=== PATIENT | female | born 1965 | race Caucasian/White ===

== ENCOUNTER 2018-11-24 18:50 | Emergency (ER) | payer MEDICAID ==
[~2018-11-24] VITALS: Ht 165.1 cm; Wt 67.1 kg
[2018-11-24 18:58] VITALS: BP_SYST 135
[2018-11-24] MEDS ORDERED: ceFAZolin SODIUM 1 GM in D5W 50 ML IV ONE (19:15)
[2018-11-24] MEDS ORDERED: NACL 0.9% 1,000 ML IV ONE (19:44)
[2018-11-24] MEDS ORDERED: ceFAZolin SODIUM 1 GM VIAL ONE (19:46)
[2018-11-24] MEDS ORDERED: DIPHENHYDRAMINE INJ 50 MG/ML VIAL IVP ONE (20:15)
[2018-11-24] MEDS ORDERED: MORPHINE 4 MG/ML INJ. SYRINGE IVP ONE ×2 (20:15→21:00)
[2018-11-24] MEDS ORDERED: MORPHINE 4 MG/ML INJ. SYRINGE ONE (20:17)
[2018-11-24] MEDS ORDERED: DIPH-TET-PERTUS Vaccine 0.5 ML VIAL (ADACEL) IM ONE (20:30)
[2018-11-24 20:41] LABS: BASOPHILS % (AUTO) 0.7 % (0.0-2.0); EOSINOPHILS # (AUTO) 0.1 K/uL (0.0-0.4); EOSINOPHILS % (AUTO) 1.3 % (0.0-4.0); HEMATOCRIT 37.2 % (36-48); HEMOGLOBIN 12.4 g/dL (12.0-16.0); LYMPHOCYTES # (AUTO) 0.9 K/uL (1.0-5.5); MEAN CORPUSCULAR HEMOGLOBIN 33 pg (27-31); MEAN CORPUSCULAR HGB CONC 33 % (32-36); MEAN CORPUSCULAR VOLUME 100 fL (79.0-98.0); MONOCYTES # (AUTO) 0.4 K/uL (0.0-1.0); MONOCYTES % (AUTO) 7.2 % (1.7-9.3); NEUTROPHILS # (AUTO) 4.4 K/uL (1.8-7.7); NEUTROPHILS % (AUTO) 75.8 % (40.0-70.0); PLATELET COUNT (AUTO) 304 K/uL (130-430); RED BLOOD CELL COUNT(AUTO) 3.74 MIL/uL (4.2-6.2); RED CELL DISTRIBUTION WIDTH 15.6 % (9.0-15.0); WHITE BLOOD COUNT (AUTO) 5.8 K/uL (4.8-10.8)
[2018-11-24 20:53] LABS: CALCIUM 8.2 mg/dL (8.4-11.0); CREATININE 0.81 mg/dL (0.55-1.30); POTASSIUM 3.4 mmol/L (3.5-5.1)
[2018-11-24 21:00] LABS: ALBUMIN 3.1 g/dL (3.4-4.8); TOTAL BILIRUBIN 0.3 mg/dL (0.0-1.0)
[2018-11-24 21:08] LABS: PROTHROMBIN TIME 9.9 SECS (9.5-12.5)
[2018-11-24 21:35] VITALS: BP_SYST 118
== END 2018-11-24 21:35 | disposition short-term general hospital (02) ==
LOC: SED 18:50
DX: S82.191B Other fracture of upper end of right tibia, initial encounter for open fracture type I or II (principal); S82.491B Other fracture of shaft of right fibula, initial encounter for open fracture type I or II; V29.9XXA Motorcycle rider (driver) (passenger) injured in unspecified traffic accident, initial encounter; Y93.89 Activity, other specified; Y92.410 Unspecified street and highway as the place of occurrence of the external cause; Y99.8 Other external cause status
CPT/HCPCS: 29505; 36415; 73590; 80053; 85025; 85610; 85730; 90471; 90715; 96365; 96375; 99285; J0690; J1200; J2270; J7030